=== PATIENT | male | born 1965 | race Caucasian/White ===

== ENCOUNTER 2025-02-03 11:14 | Inpatient (IN) | payer MEDICAID, SELFPAY ==
[2025-02-03] VITALS (7 sets, daily range): BP systolic 95–149; BP diastolic 74–88; PULSE 82–110; RESP 12–95; TEMP 36.2–37.3; O2SAT 97–100; BMI 21.6
--- NOTE | 2025-02-03 11:30 | XR_ITS ---
Exam: Chest 1 view, AP Date and time of exam: 02/03/2025, 1:22 PM Comparison: 01/19/2024 INDICATION: Chest pain Findings: Normal heart size. No mediastinal adenopathy. No acute fracture No pulmonary edema or pneumonia. Impression: No active disease.
--- NOTE | 2025-02-03 11:33 | PD.EDWEAK ---
ED Weakness RME/HPI General Chief complaint: Syncope / Near Syncope Stated complaint: NEAR SYNCOPE Time Seen by Provider: 02/03/25 11:30 Arrival date/time: 02/03/25 11:14 RME / HPI RME / HPI Narrative: 59 year old male with history of type 2 diabetes and hypertension was presented to the ER BIBA, Related Data Previous Rx's ?Medication ?Instructions ?Recorded amlodipine 10 mg tablet 10 mg PO QDAY #30 tabs 08/10/19 atorvastatin 80 mg tablet 80 mg PO QPM #30 tabs 08/10/19 carvedilol 6.25 mg tablet 6.25 mg PO BID #60 tabs 08/10/19 empagliflozin 10 mg tablet 10 mg PO QAM #30 tabs 08/10/19 (Jardiance) lisinopril 20 mg tablet 20 mg PO QDAY #30 tabs 08/10/19 Allergies Allergy/AdvReac Type Severity Reaction Status Date / Time No Known Allergies Allergy Unverified 09/16/19 14:11 Course Orders Category Date Time Status EKG (ED ONLY) *Do not use* NOW Care 02/03/25 11:30 Active EKG (ED Only) Stat Exams 02/03/25 11:30 Ordered XR chest 1V portable Stat Exams 02/03/25 11:30 Ordered Alcohol, Blood Medical Stat Lab 02/03/25 11:30 Ordered B-Type Natriuretic Peptide Stat Lab 02/03/25 11:30 Ordered CBC Stat Lab 02/03/25 11:30 Ordered Comprehensive Metabolic Panel Stat Lab 02/03/25 11:30 Ordered T4 (Thyroxine) Stat Lab 02/03/25 11:30 Ordered Thyroid Stimulating Hormone Stat Lab 02/03/25 11:30 Ordered Troponin I Stat Lab 02/03/25 11:30 Ordered Urinalysis Stat Lab 02/03/25 11:30 Ordered Urinalysis, C/S if Indicated Stat Lab 02/03/25 11:30 Ordered Discharge Plan Prescriptions/Referrals Prescriptions/Med Rec: No Action amlodipine 10 mg tablet 10 mg PO QDAY Qty: 30 0RF carvedilol 6.25 mg tablet 6.25 mg PO BID Qty: 60 0RF Rx Instructions: must administer with a meal/food lisinopril 20 mg tablet 20 mg PO QDAY Qty: 30 0RF atorvastatin 80 mg tablet 80 mg PO QPM Qty: 30 0RF Jardiance 10 mg tablet 10 mg PO QAM Qty: 30 0RF Patient/Caregiver Discharge Instructions Print Language: Monegasque
--- NOTE | 2025-02-03 11:38 | PD.EDSYNC ---
ED Syncope RME/HPI General Chief Complaint: Syncope / Near Syncope Stated Complaint: NEAR SYNCOPE Time Seen by Provider: 02/03/25 11:30 Arrival date/time: 02/03/25 11:14 RME / HPI RME / HPI narrative: 59 year old male with history of type 2 diabetes and hypertension was presented to the ER BIBA. Per EMS, chief complaint of near syncope. Patient stated he experienced dizziness, the whole place was spinning ,when kneeling or with sudden movements started yesterday during work. Patient denies feeling of weakness in extremities. Related Data Previous Rx's ?Medication ?Instructions ?Recorded amlodipine 10 mg tablet 10 mg PO QDAY #30 tabs 08/10/19 atorvastatin 80 mg tablet 80 mg PO QPM #30 tabs 08/10/19 carvedilol 6.25 mg tablet 6.25 mg PO BID #60 tabs 08/10/19 empagliflozin 10 mg tablet 10 mg PO QAM #30 tabs 08/10/19 (Jardiance) lisinopril 20 mg tablet 20 mg PO QDAY #30 tabs 08/10/19 Allergies Allergy/AdvReac Type Severity Reaction Status Date / Time No Known Allergies Allergy Unverified 09/16/19 14:11 Review of Systems Review of Systems Systems Reviewed: All systems reviewed, normal except as documented Narrative Review of Systems: Constitutional: DENIES; Fevers Eyes: DENIES; Loss of vision Head/Ear/Nose: DENIES; Loss of hearing Throat: DENIES; Dysphagia Cardiovascular: +near syncope DENIES; Chest pain, dyspnea Respiratory: DENIES; Shortness of breath Gastrointestinal: DENIES; Rectal bleeding or melena. Genitourinary: DENIES; Dysuria (painful or difficult urination) Musculoskeletal: DENIES; Arthralgia (pain in a joint),; Skin: DENIES; Rash Neurological: + dizziness DENIES; Loss of function or movement Psychiatric: DENIES; recent major life stressor, emotional problem, illicit drug use or abuse Endocrinology: DENIES; Weight change Hematologic/Lymphatic: DENIES; Abnormal bruising Allergic/Immunologic: DENIES; Urticaria (hives) Past Medical History Past Medical History NEUROLOGIC: Positive Neurological Disorders, Cerebrovascular Accident, Transient Ischemic Attacks (TIA) and Meningitis CARDIAC: Positive Hypertension Surgical History SURGICAL: Positive Tonsillectomy Social History SMOKING STATUS: Never smoker SUBSTANCE USE: marijuana and crack/cocaine ED Exam Narrative Physical exam: Physical Exam: General: The vital signs were reviewed. The patient is non-toxic, in no apparent distress and appears healthy with a patent airway, no respiratory distress and has no apparent circulatory problems. Head & Scalp: Normocephalic, atraumatic. Face: Appears normal and is without lesions, deformity. Ears: Left external pinna appears normal. Right external pinna appears normal. Eyes: The sclera is anicteric. No obvious photophobia. The Left and Right Orbit/Lid/Conjunctiva appears normal without swelling, discoloration or injection. Nose: The nose is without deformity, discharge or tenderness; Throat: Appears normal. The mucous membranes are pink and moist without exudates, redness or mass seen. The tongue appears normal. Neck: The neck is supple and no apparent mass or adenopathy. Chest: The chest wall is normal in size and symmetry and has no chest wall tenderness or crepitus. The patient displays normal ventilator effort without retractions, accessory muscle use and has adequate air movement bilaterally with no wheezes and no rales. Cardiovascular: Regular rate and rhythm; No murmurs, rubs, or gallops; Gastrointestinal: The abdomen appears normal. No obvious hernias or mass. The abdomen is soft and benign, non-distended, with no pain, no guarding and no rebound tenderness. Bowel sounds are present and normal sounding. No CVA tenderness. Genitourinary: Back/Spine: Extremities/Musculoskeletal/lymphatic: The bilateral upper and lower extremities are warm. There is no evidence of arterial insufficiency. There is no evidence of venous insufficiency/edema. The patient spontaneously moves bilateral upper and lower extremities with no pain and no limitation of movement. There is no apparent, injury or trauma. Skin: The skin is warm, dry and intact. No rashes. No petechia. No purpura. No abnormal bruising. The color is appropriate with no cyanosis. Mental status/Psychiatric: Mental status is appropriate for age. The patient has no apparent delusions, visual hallucinations, no apparent audible hallucinations. The patient has no apparent suicidal thoughts/ideation and no apparent homicidal thoughts/ideation. Neurological: The patient is awake, alert, interactive, cordial, cooperative and is oriented to name and situation. The patient follows commands and answers historical question with no impairment. There is no visual disturbance apparent. The pupils are equal and reactive bilaterally with normal eye movements and no diplopia The bilateral upper and lower extremities have normal strength, normal range of motion and normal functioning. The gait, station and balance were not tested due to acuity Course Quality Measures none Orders Category Date Time Status EKG (ED ONLY) *Do not use* NOW Care 02/03/25 11:30 Completed EKG (ED Only) Stat Exams 02/03/25 11:30 Ordered XR chest 1V portable Stat Exams 02/03/25 11:30 Completed Alcohol, Blood Medical Stat Lab 02/03/25 12:46 Completed B-Type Natriuretic Peptide Stat Lab 02/03/25 12:46 Completed CBC Stat Lab 02/03/25 12:46 Completed Comprehensive Metabolic Panel Stat Lab 02/03/25 12:46 Completed T4 (Thyroxine) Stat Lab 02/03/25 12:46 Completed Thyroid Stimulating Hormone Stat Lab 02/03/25 12:46 Completed Troponin I Stat Lab 02/03/25 12:46 Completed Urinalysis Stat Lab 02/03/25 11:30 Ordered Urinalysis, C/S if Indicated Stat Lab 02/03/25 11:30 Ordered Vital Signs Vital signs: Vital Signs Temperature 98.4 F 02/03/25 11:36 Pulse Rate 82 02/03/25 11:36 Blood Pressure 149/88 H 02/03/25 11:36 Pulse Oximetry (%) 100 02/03/25 11:36 Oxygen Delivery Method Room Air 02/03/25 11:36 Pulse ox is 100% on room air which is adequate. Syncope MDM Narrative MDM Narrative:: Susan Olivares am scribing for and in the presence of Dr. Curtis. Patient 59-year-old who comes in by ambulance complaining of intermittent vertigo symptoms feeling weak and possibly near syncope. He has no known cardiac problems. Medical workup revealed no neurological deficits clinically. He had no swallowing difficulties. Extraocular's are intact. Laboratory studies show a white count of 7.6 hemoglobin of 14.8 electrolytes within normal limits BUN 29 creatinine of 2.0 and review of old labs reveals some chronic renal insufficiency. Little worse today. Troponin came back at 1.681 previous troponins were all negative. BNP was negative at 35. Thyroid panel came back negative Note this patient was initially billed as 71 with atrial for by EMS but review of their strips revealed normal sinus rhythm with occasional PACs with a pause afterwards making it look like there was some irregularity. Alco level is negative. Chest x-ray came back negative. We were kind of surprised that the initial troponin came back positive and -200 he is got some cardiac ischemia or ACS going on. EKG came back with no STEMI. And review of the patient reveals that he is having no reported chest discomfort. Spoke with the hospitalist and they decided they will admit the patient start this out further. Patient data External records reviewed:: [facility] previous records and EMS form Clinical information provided by:: patient and EMS Social determinants that could affect healthcare access:: substance use Patient has the following chronic illnesses:: hypertension, type 2 diabetes How is presenting disease/condition affected by chronic disease/condition?: uneffected by Evaluation data The following diagnostics were reviewed and interpreted by me:: lab results, radiology exam(s) and EKG tracing(s) (EKG#1: EKG at 1335 hours. Interpreted by me: sinus rhythm, rate 83) Lab and/or radiology exams considered but not ordered:: none Interpretation Summary: Ordering Physician: Chauncey Curtis MD Date of Service: 02/03/25 Procedure(s): XR chest 1V portable Accession Number(s): [id number] cc: Fidel Duffy MD; Chauncey Curtis MD; Wayne Bishop~ Exam: Chest 1 view, AP Date and time of exam: 02/03/2025, 1:22 PM Comparison: 01/19/2024 INDICATION: Chest pain Findings: Normal heart size. No mediastinal adenopathy. No acute fracture No pulmonary edema or pneumonia. Impression: No active disease. Dictated By: Fidel Duffy MD Signed By: <Electronically signed by Fidel Duffy MD in OV> 02/03/25 1250 Medications / Prescriptions Medications or Prescriptions considered but not ordered:: none Medication administrations:: Medication Administration History Acetaminophen (Acetaminophen 325 Mg Tablet) 650 mg PO Q6H PRN PRN Reason: Fever >101.5 Stop: 03/05/25 15:00 Aspirin (Aspirin Ec 81 Mg Tabec) 81 mg PO QDAY SUSHMA Stop: 03/06/25 08:59 Atorvastatin Calcium (Atorvastatin Calcium 20 Mg Tablet) 40 mg PO HS SUSHMA Stop: 03/05/25 20:59 Ibuprofen (Ibuprofen Tab 600 Mg Tablet) 600 mg PO Q6H PRN PRN Reason: PAIN SCALE 1-3 (mild Stop: 03/05/25 15:00 Metoclopramide HCl (Metoclopramide Inj 5 Mg/Ml Vial 2 Ml) 10 mg IVP Q6H PRN; Protocol PRN Reason: NAUSEA OR VOMITING Stop: 03/05/25 15:00 Nitroglycerin (Nitroglycerin 0.4 Mg Subl Btl #25) 0.4 mg SL Q5MIN PRN PRN Reason: CHEST PAIN Discontinued Medications Aspirin (Aspirin 325 Mg Tablet) 325 mg PO X1 ONE Stop: 02/03/25 15:10 Heparin Sodium (Porcine) (Heparin Sod Inj 5000 Unit/Ml Vial) 4,000 unit IV X1 ONE; Protocol Stop: 02/03/25 15:08 Heparin Sodium/Dextrose (Heparin In D5w Ivpb) 25,000 unit in 250 mls @ 8.437 mls/hr IV .Q24H SUSHMA; Protocol Stop: 02/17/25 15:14 see above Consultations Consultation(s) initiated? (list below): Yes Consultation #1 (Physician, Specialty, Details): I spoke with hospitalist Dr. Matthews. Discussed patients PMHx, HPI, ED course, exam findings, labs, and radiology results. The hospitalist agree to accept the patient for admission. Diagnosis Syncope Differential Diagnosis: syncope due to orthostatic hypotension, vasovagal syncope and other (vertigo ) Most likely diagnosis given after review of the tests above:: Weakness Elevated troponin Vertigo Admission Indicated Admission indicated?: indicated Admission Request Was there a request for admission?: Yes Admission Attestation Admission request attestation: Discussed case with [] from Hospitalist service regarding admission. Discussed patients ED course, exam findings, labs, and radiology results. The Hospitalist [agrees,declines] to accept the patient for admission. Disposition Plan Disposition Plan: Admit Discharge Plan Plan Patient Disposition: Admit Acute Care w/in Hospital Disposition Comment: Hospitalist to admit thank Problem List Clinical Impression: Weakness, Elevated troponin, Vertigo
[2025-02-03 12:55] LABS: Basophils # (Auto) 0.1 Thou/mm3 (0.0-0.2); Basophils % (Auto) 1 % (0-2.5); Eosinophils % (Auto) 0 % (0-10); Hematocrit 43.9 % (41.0-53.0); Hemoglobin 14.8 g/dL (13.5-16.0); Immature Granulocytes % (Auto) 0 % (0-0); Immature Granulocytes Auto 0.03 Thou/mm3 (0.00-0.00); Lymphocytes % (Auto) 13 % (10-50); Mean Corpuscular HGB Conc 33.7 g/dl (31.0-37.0); Mean Corpuscular Volume 80 fL (80-100); Monocytes # (Auto) 0.5 Thou/mm3 (0.0-0.8); Monocytes % (Auto) 6 % (0-12); Neutrophils % (Auto) 79 % (37-80); Nucleated Red Blood Cell % 0 /100 WBC (0); Platelet Count 250 Thou/mm3 (140-440); RDW Standard Deviation 39.2 fL (35.1-43.9); Red Blood Count 5.49 Miln/mm3 (4.50-5.90); White Blood Count 7.6 Thou/mm3 (3.8-10.6)
[2025-02-03 13:12] LABS: B-Type Natriuretic Peptide 35 pg/mL (0-100)
[2025-02-03 13:16] LABS: T4 (Thyroxine) 8.5 mcg/dL (4.5-10.9)
[2025-02-03 13:19] LABS: Alanine Aminotransferase 21 U/L (10-49); Albumin, Serum 4.1 gm/dL (3.5-5.0); Albumin/Globulin Ratio 1.3 (1.2-2.2); Alcohol, Blood Medical < 3.0 mg/dL (0-10.0); Alkaline Phosphatase 72 U/L (46-116); Anion Gap 6 (7-16); Aspartate Amino Transferase 20 U/L (0-34); BUN/Creatinine Ratio 15 Ratio (12-20); Bilirubin,Total 0.8 mg/dL (0.3-1.2); Blood Urea Nitrogen 29 mg/dL (9-23); Calcium 9.3 mg/dL (8.3-10.6); Calcium (Corrected) 9.3 mg/dL (8.5-10.1); Carbon Dioxide 27.7 mMol/L (20.0-31.0); Chloride 105 mMol/L (98-107); Globulin 3.1 gm/dL (2.3-3.5); Glucose 166 mg/dL (74-106); Osmolality,Calculated 287 (275-295); Potassium 4.2 mMol/L (3.4-5.1); Sodium 139 mMol/L (136-145); Thyroid Stimulating Hormone 1.06 uIU/mL (0.55-4.78); Total Protein 7.2 gm/dL (5.7-8.2); eGFR 38 See Note
[2025-02-03 13:21] LABS: Troponin I 1.681 ng/mL (0.0-0.045)
--- NOTE | 2025-02-03 15:07 | PD.ADDHP ---
Addendum History & Physical Addendum Date of report being addended: 02/03/25 Narrative: Attending's attestation: I reviewed labs, imaging, EKG, home medications and prior available records. Face to face evaluation was performed by me. I have personally examined the patient and discussed assessment and plan with the IM team. I reviewed the resident note and agree with the plan with exceptions as below. Non-STEMI Dizziness Chest pain at rest Type 2 diabetes mellitus Essential hypertension BPH History of intracranial bleed Started aspirin and atorvastatin Held heparin drip due to history of intracranial bleed Trend troponin Consulted cardiology Ordered echocardiogram Resume antihypertensive treatment Start sliding scale insulin and monitor fingersticks
--- NOTE | 2025-02-03 15:20 | PD.RESHP ---
Documentation for date of: 02/03/25 HPI History of Present Illness History of present illness: 59-year-old male patient with significant medical history for multiple CVA (including bleeding), hypertension, diabetes and hyperlipidemia came to ED for dizziness and intermittent chest pain. Patient states that he has episodes of dizziness whenever he is exerting himself. Patient denied chest pain/pressure, NVD, palpitations, fever or other associated symptoms. While patient does have episodes of intermittent episodes of nonradiating chest pain, he denied chest pain during this visit. Patient had bleeding stroke in 2018 that required transfer to [facility], he also had an episode of TIA in 2019. Patient follows up with [facility]. On admission vitals significant for BP 149/88, CBC was unremarkable, indicated BUN of 29, creatinine 2, EGFR 38 glucose 166, troponin 1.68. Chest x-ray was unremarkable and EKG was negative for STEMI. Given patient elevated troponin, history and comorbidities, patient will be admitted for ACS work-up. Electric Distribution Engineer Dr. Archer consulted. Medical Hx: CVA, TIA, hypertension, diabetes, hyperlipidemia Surgical Hx: Appendectomy, hernia repair, tonsillectomy Medications (needs reconciliation): Amlodipine, atorvastatin, carvedilol, Jardiance, lisinopril Social Hx: Works in automotive industry, lives with , denies smoking cigarettes or using other illicit drugs, socially drinks alcohol Allergies: NKDA CODE STATUS: Full code Review of Systems Review of Systems Systems Reviewed: All systems reviewed, normal except as documented Exam Vital Signs Temp Pulse Resp BP Pulse Ox O2 Del Method 99.1 F 95 15 108/76 98 Room Air 02/03/25 13:40 02/03/25 13:40 02/03/25 13:40 02/03/25 13:40 02/03/25 13:40 02/03/25 13:40 Narrative Exam Constitutional: well-developed, well-nourished, in no acute distress, lying in bed HEENT: NCAT, EOMI, reactive round pupils b/l, patent nares b/l, moist mucous membranes Lung: CTAB, no wheezing, no rhonchi Heart: Regular S1S2, no murmurs, gallops, or rubs Abdomen: Soft, non-distended, non-tender, bowel sounds present throughout Extremities: No cyanosis, clubbing, or edema, LE pulses present b/l Neurologic: No focal sensory or motor deficits noted, AOx3, appropriate affect Skin: Warm, dry, no lesions or rashes noted Results: Labs 02/04/25 06:42 02/04/25 06:42 Labs: Short CBC 02/03/25 Range/Units 12:46 WBC 7.6 (3.8-10.6) Thou/mm3 Hgb 14.8 (13.5-16.0) g/dL Hct 43.9 (41.0-53.0) % Plt Count 250 (140-440) Thou/mm3 BMP 02/03/25 12:46 Sodium 139 Potassium 4.2 Chloride 105 Carbon Dioxide 27.7 BUN 29 H Creatinine 2.0 H Glucose 166 H Calcium 9.3 Cardiac Enzymes 02/03/25 Range/Units 12:46 Troponin I 1.681 H* (0.0-0.045) ng/mL Liver Function 02/03/25 Range/Units 12:46 Total Bilirubin 0.8 (0.3-1.2) mg/dL AST 20 (0-34) U/L ALT 21 (10-49) U/L Alkaline Phosphatase 72 (46-116) U/L Albumin 4.1 (3.5-5.0) gm/dL Quality Measures Quality Measures none Medications Home Medications and Allergies Home Medications ?Medication ?Instructions ?Recorded ?Confirmed ?Type linagliptin 5 mg tablet (Tradjenta) 5 mg PO QDAY 02/04/25 02/04/25 History lisinopril 20 2 tab PO QDAY 02/04/25 02/04/25 History mg-hydrochlorothiazide 25 mg tablet (Zestoretic) metformin 500 mg tablet,extended 500 mg PO QDAY 02/04/25 02/04/25 History release 24 hr tamsulosin 0.4 mg capsule 0.4 mg PO QDAY 02/04/25 02/04/25 History Allergies Allergy/AdvReac Type Severity Reaction Status Date / Time No Known Allergies Allergy Unverified 09/16/19 14:11 Visit Medications Acetaminophen (Acetaminophen 325 Mg Tablet) 650 mg PO Q6H PRN PRN Reason: Fever >101.5 Stop: 03/05/25 15:00 Aspirin (Aspirin Ec 81 Mg Tabec) 81 mg PO QDAY SUSHMA Stop: 03/06/25 08:59 Atorvastatin Calcium (Atorvastatin Calcium 20 Mg Tablet) 40 mg PO HS SUSHMA Stop: 03/05/25 20:59 Heparin Sodium (Porcine) (Heparin Sod Inj 5000 Unit/Ml Vial) 4,000 unit IV X1 ONE; Protocol Stop: 02/03/25 15:08 Heparin Sodium/Dextrose (Heparin In D5w Ivpb) 25,000 unit in 250 mls @ 8.437 mls/hr IV .Q24H SUSHMA; Protocol Stop: 02/17/25 15:14 Ibuprofen (Ibuprofen Tab 600 Mg Tablet) 600 mg PO Q6H PRN PRN Reason: PAIN SCALE 1-3 (mild Stop: 03/05/25 15:00 Metoclopramide HCl (Metoclopramide Inj 5 Mg/Ml Vial 2 Ml) 10 mg IVP Q6H PRN; Protocol PRN Reason: NAUSEA OR VOMITING Stop: 03/05/25 15:00 Discontinued Medications Aspirin (Aspirin 325 Mg Tablet) 325 mg PO X1 ONE Stop: 02/03/25 15:10 Assessment & Plan Plan 59-year-old male patient with significant medical history for CVA, TIA, hypertension, diabetes hyperlipidemia admitted for ACS workup #ACS work-up #NSTEMI #Elevated troponin #Near syncope Patient with history of hypertension, diabetes for lipidemia On admission patient complaining of dizziness and history of intermittent nonradiating chest pain Lab significant for elevated troponin with EKG negative for STEMI Plan: ? Admit to telemetry ? Electric Distribution Engineer consulted, recommendations are greatly appreciated ? Start aspirin and atorvastatin ? Withhold heparin ggt in setting of bleeding stroke hx ? Trend troponin ? Sublingual nitroglycerin for chest pain ? Echocardiogram ordered #Hypertension Plan: ? Restart home meds after conciliation #Diabetes mellitus type 2 Patient on p.o. metformin and Jardiance Plan: ? Follow-up A1c ? SSI plus [facility] Maintenance Dispo: Patient admitted for ACS workup, cardiology consulted Diet: Cardiac diet DVT/PPx: Heparin GI ppx: None Lines: PIV Code Status: Full code This patient care was discussed with my attending Dr. Byron Clark MD PGY-2 Disclaimer: Minor errors in automotive fleet supervisor may be present since this note was dictated by speech recognition software. Attending Provider Attestation/Addendum I reviewed labs, imaging, EKG, home medications and prior available records. Face to face evaluation was performed by me. I have personally examined the patient and discussed assessment and plan with the IM team. I reviewed the resident note and agree with the plan with exceptions as below. See my addendum for the same date of service
[2025-02-03 15:30] LABS: Partial Thromboplastin Time 25.6 Seconds (22.0-36.0)
[2025-02-03] MEDS: Aspirin 325 MG TABLET PO (18:15)
[2025-02-03 19:22] LABS: Troponin I 1.212 ng/mL (0.0-0.045)
--- NOTE | 2025-02-03 19:31 | PC.NURSE ---
Report given to Priscila PASTRANA in tele.
--- NOTE | 2025-02-03 20:00 | PC.NURSE ---
Unable to do med rec patient does not remember or have his home meds with him. Per patient, his will bring his home meds when she comes in the AM
[2025-02-03] MEDS: ATORVASTATIN CALCIUM 20 MG TABLET 40 MG PO (20:20)
[2025-02-03] MEDS: HEPARIN SOD INJ 5000 UNIT/ML VIAL SC (21:09)
--- NOTE | 2025-02-03 23:55 | PC.NURSE ---
MD Kelly notified that patient's orthostatic vitals are positive. See below Laying: BP 128/84 HR 96 Sitting: BP 102/80 HR 97 Standing:BP 95/74 HR 110
[2025-02-04] VITALS (8 sets, daily range): BP systolic 108–145; BP diastolic 75–99; PULSE 66–95; RESP 13–20; TEMP 35.9–36.9; O2SAT 96–98; BMI 23.8
[2025-02-04 01:09] LABS: Troponin I 1.163 ng/mL (0.0-0.045)
[2025-02-04] MEDS: HEPARIN SOD INJ 5000 UNIT/ML VIAL SC ×3 (05:25→21:07)
[2025-02-04 07:01] LABS: Basophils # (Auto) 0.1 Thou/mm3 (0.0-0.2); Basophils % (Auto) 1 % (0-2.5); Eosinophils # (Auto) 0.1 Thou/mm3 (0.0-0.5); Eosinophils % (Auto) 1 % (0-10); Hematocrit 44.3 % (41.0-53.0); Hemoglobin 14.6 g/dL (13.5-16.0); Immature Granulocytes % (Auto) 0 % (0-0); Immature Granulocytes Auto 0.02 Thou/mm3 (0.00-0.00); Lymphocytes # (Auto) 1.4 Thou/mm3 (1.0-4.8); Lymphocytes % (Auto) 22 % (10-50); Mean Corpuscular Hemoglobin 26.9 pg (25.0-35.0); Mean Corpuscular Volume 82 fL (80-100); Monocytes # (Auto) 0.5 Thou/mm3 (0.0-0.8); Monocytes % (Auto) 7 % (0-12); Neutrophils # (Auto) 4.6 Thou/mm3 (1.8-7.7); Neutrophils % (Auto) 69 % (37-80); Nucleated Red Blood Cell % 0 /100 WBC (0); Platelet Count 246 Thou/mm3 (140-440); RDW Standard Deviation 39.9 fL (35.1-43.9); Red Blood Count 5.42 Miln/mm3 (4.50-5.90); White Blood Count 6.6 Thou/mm3 (3.8-10.6)
[2025-02-04 07:13] LABS: Partial Thromboplastin Time 26.7 Seconds (22.0-36.0)
[2025-02-04 07:18] LABS: Glucose Estimated Average 160 mg/dL (80-131); Hemoglobin A1C 7.2 % Hgb (4.8-6.0)
[2025-02-04 07:26] LABS: Anion Gap 6 (7-16); BUN/Creatinine Ratio 15 Ratio (12-20); Blood Urea Nitrogen 27 mg/dL (9-23); Calcium 9.4 mg/dL (8.3-10.6); Carbon Dioxide 28.3 mMol/L (20.0-31.0); Chloride 104 mMol/L (98-107); Creatinine (Component) 1.8 mg/dL (0.6-1.3); Estimated Creatinine Clearance 47.6 mL/min (>60); Glucose 167 mg/dL (74-106); Osmolality,Calculated 284 (275-295); Phosphorous 2.7 mg/dL (2.4-5.1); Potassium 4.1 mMol/L (3.4-5.1); Sodium 138 mMol/L (136-145); Thyroid Stimulating Hormone 1.04 uIU/mL (0.55-4.78); Troponin I 0.889 ng/mL (0.0-0.045); eGFR 43 See Note
[2025-02-04] MEDS: INSULIN LISPRO (AdmeLOG) 1 UNIT/0.01 ML UNIT SC (07:29)
[2025-02-04 07:48] LABS: Cardiac Risk Estimate 4.3 RATIO (4.0-6.7); Cholesterol 152 mg/dL (132-200); HDL Cholesterol 35 mg/dL (40-60); LDL Cholesterol,Calculated 90 mg/dL (0-130); Triglycerides 137 mg/dL (30-150)
[2025-02-04] MEDS: ASPIRIN EC 81 MG TABEC PO (08:59)
--- NOTE | 2025-02-04 10:18 | PC.SS ---
This is 59-, male who presented to the ED for chest pain. Patient appeared alert and oriented to self, place and situation. Patient was pleasant, his mood and behavior were ordinary. Patient verified his address. He resides in a home. Patient is independent, no DME use. Patient's PCP is DINESH. Patient assigned his , Jacqueline, as his medical decision maker. When medically clear, patient will return home, no transportation.
--- NOTE | 2025-02-04 11:58 | ESPR_ITS ---
Documentation for date of: 02/04/25 Subjective Subjective Interval history: Orthostatic vital indicated orthostatic hypotension. Patient educated on dehydration and inreased p.o. intake. Patient pending echo and cardiology reccs. Patient denied chest pain/pressure or other associated symptoms, troponin downtrended. Anticipating discharge within 24-48 hours. Exam Vital Signs Temp Pulse Resp BP Pulse Ox O2 Del Method 97.0 F 74 13 112/87 H 96 Room Air 02/04/25 08:00 02/04/25 08:00 02/04/25 08:00 02/04/25 08:00 02/04/25 08:00 02/04/25 08:00 Narrative Exam Constitutional: well-developed, well-nourished, in no acute distress, lying in bed HEENT: NCAT, EOMI, reactive round pupils b/l, patent nares b/l, moist mucous membranes Lung: CTAB, no wheezing, no rhonchi Heart: Regular S1S2, no murmurs, gallops, or rubs Abdomen: Soft, non-distended, non-tender, bowel sounds present throughout Extremities: No cyanosis, clubbing, or edema, LE pulses present b/l Neurologic: No focal sensory or motor deficits noted, AOx3, appropriate affect Skin: Warm, dry, no lesions or rashes noted Objective Labs 02/05/25 05:23 02/05/25 05:23 Labs: Laboratory Results - last 24 hr 02/03/25 02/03/25 02/04/25 12:46 18:06 00:35 WBC 7.6 RBC 5.49 Hgb 14.8 Hct 43.9 MCV 80 MCH 27.0 MCHC 33.7 RDW Std Deviation 39.2 Plt Count 250 Neut % (Auto) 79 Lymph % (Auto) 13 [place] % (Auto) 6 Eos % (Auto) 0 Baso % (Auto) 1 Neut # (Auto) 6.0 Lymph # (Auto) 1.0 [place] # (Auto) 0.5 Eos # (Auto) 0.0 Baso # (Auto) 0.1 Immature Gran # (Auto) 0.03 H Absolute Nucleated RBC 0.00 Immature Gran % 0 Nucleated RBC % 0 APTT 25.6 Sodium 139 Potassium 4.2 Chloride 105 Carbon Dioxide 27.7 Anion Gap 6 L BUN 29 H Creatinine 2.0 H Estim Creat Clear Calc 40.0 L eGFR 38 L BUN/Creatinine Ratio [address] Glu mg/dL Hemoglobin A1c Calculated Osmolality 287 Calcium 9.3 Corrected Calcium 9.3 Phosphorus Magnesium Total Bilirubin 0.8 AST 20 ALT 21 Alkaline Phosphatase 72 Troponin I 1.681 H* 1.212 H* D 1.163 H* B-Natriuretic Peptide 35 Total Protein 7.2 Albumin 4.1 Globulin 3.1 Albumin/Globulin Ratio 1.3 Triglycerides Cholesterol LDL Cholesterol, Calc HDL Cholesterol Cholesterol/HDL Ratio TSH 1.06 Thyroxine (T4) 8.5 Ethyl Alcohol < 3.0 02/04/25 06:42 WBC 6.6 RBC 5.42 Hgb 14.6 Hct 44.3 MCV 82 MCH 26.9 MCHC 33.0 RDW Std Deviation 39.9 Plt Count 246 Neut % (Auto) 69 Lymph % (Auto) 22 [place] % (Auto) 7 Eos % (Auto) 1 Baso % (Auto) 1 Neut # (Auto) 4.6 Lymph # (Auto) 1.4 [place] # (Auto) 0.5 Eos # (Auto) 0.1 Baso # (Auto) 0.1 Immature Gran # (Auto) 0.02 H Absolute Nucleated RBC 0.00 Immature Gran % 0 Nucleated RBC % 0 APTT 26.7 Sodium 138 Potassium 4.1 Chloride 104 Carbon Dioxide 28.3 Anion Gap 6 L BUN 27 H Creatinine 1.8 H Estim Creat Clear Calc 47.6 L eGFR 43 L BUN/Creatinine Ratio [address]ucose [address] Glu mg/dL 160 H Hemoglobin A1c 7.2 H Calculated Osmolality 284 Calcium 9.4 Corrected Calcium Phosphorus 2.7 Magnesium 2.0 Total Bilirubin AST ALT Alkaline Phosphatase Troponin I 0.889 H* D B-Natriuretic Peptide Total Protein Albumin Globulin Albumin/Globulin Ratio Triglycerides 137 Cholesterol 152 LDL Cholesterol, Calc 90 HDL Cholesterol 35 L Cholesterol/HDL Ratio 4.3 TSH 1.04 Thyroxine (T4) Ethyl Alcohol Quality Measures Quality Measures none Assessment & Plan Assessment Current Active Medications: Generic Name Dose Route Start Last Admin Trade Name Freq PRN Reason Stop Dose Admin Acetaminophen 650 mg 02/03/25 15:01 Acetaminophen 325 Mg Tablet PO 03/05/25 15:00 Q6H PRN Fever >101.5 Aspirin 81 mg 02/04/25 09:00 02/04/25 08:59 Aspirin Ec 81 Mg Tabec PO 03/06/25 08:59 81 mg QDAY SUSHMA Administration Atorvastatin Calcium 40 mg 02/03/25 21:00 02/03/25 20:20 Atorvastatin Calcium 20 Mg Tablet PO 03/05/25 20:59 40 mg HS SUSHMA Administration Dextrose 25 ml 02/03/25 18:25 Dextrose 50%-Water Inj 50 Ml Syringe IV 03/05/25 18:24 Q15MIN PRN BG 50-70 responsive npo pt Dextrose 50 ml 02/03/25 18:25 Dextrose 50%-Water Inj 50 Ml Syringe IV 03/05/25 18:24 Q15MIN PRN BG <50 OR BG <70 & pt unresponsive Glucagon 1 mg 02/03/25 18:25 Glucagon Inj 1 Mg Vial IM Q15MIN PRN BG <70, and no IV access Heparin Sodium (Porcine) 5,000 unit 02/03/25 22:00 02/04/25 05:25 Heparin Sod Inj 5000 Unit/Ml Vial SC 02/17/25 21:59 5,000 unit Q8HR SUSHMA Administration Ibuprofen 600 mg 02/03/25 15:01 Ibuprofen Tab 600 Mg Tablet PO 03/05/25 15:00 Q6H PRN PAIN SCALE 1-3 (mild Insulin Human Lispro 0 unit 02/04/25 07:30 02/04/25 11:19 Insulin Lispro (Admelog) 1 Unit/0.01 Ml Unit SC 03/06/25 07:29 Not Given AC [facility] Protocol Metoclopramide HCl 10 mg 02/03/25 15:01 Metoclopramide Inj 5 Mg/Ml Vial 2 Ml IVP 03/05/25 15:00 Q6H PRN NAUSEA OR VOMITING Protocol Nitroglycerin 0.4 mg 02/03/25 15:22 Nitroglycerin 0.4 Mg Subl Btl #25 SL Q5MIN PRN CHEST PAIN Plan 59-year-old male patient with significant medical history for CVA, TIA, hypertension, diabetes hyperlipidemia admitted for ACS workup #ACS work-up #NSTEMI #Near syncope #Elevated troponin Patient with history of hypertension, diabetes for lipidemia On admission patient complaining of dizziness and history of intermittent nonradiating chest pain Lab significant for elevated troponin with EKG negative for STEMI Plan: ? Admit to telemetry ? Shipyard Painter Apprentice consulted, recommendations are greatly appreciated ? Continue aspirin and atorvastatin ? Sublingual nitroglycerin for chest pain ? Echocardiogram pending #Hypertension Plan: - Current BP WNL ? Withhold BP meds in setting of orthostatic hypotension #Diabetes mellitus type 2 Patient on p.o. metformin and Jardiance Plan: ? Follow-up A1c ? [facility] Maintenance Dispo: Patient admitted for ACS workup, cardiology consulted Diet: Cardiac diet DVT/PPx: Heparin GI ppx: None Lines: PIV Code Status: Full code This patient care was discussed with my attending Dr. Lele Clark MD PGY-2 Disclaimer: Minor errors in biometrics technician may be present since this note was dictated by speech recognition software. Attending Provider Attestation/Addendum Patient seen and examined at bedside with resident. Agree with assessment and plan as dictated above. Patient appears mildly improved today. He reports some improvement in his dizziness. Still waiting on echo and cardiology recommendations. Likely some element of orthostatic hypotension with positive orthostatic vitals. Reassess patient's home regimen and advised to increase p.o. intake. Anticipate discharge in next 1 to 2 days. Avi Royal MD
[2025-02-04] MEDS: ATORVASTATIN CALCIUM 20 MG TABLET 40 MG PO (20:33)
[2025-02-05] VITALS: PULSE 66
[2025-02-05 04:00] VITALS: BP 139/93; PULSE 68; PULSE 70; RESP 17; TEMP 36.4; O2SAT 98
[2025-02-05] MEDS: HEPARIN SOD INJ 5000 UNIT/ML VIAL SC ×2 (05:19→14:39)
[2025-02-05 06:00] LABS: Basophils % (Auto) 1 % (0-2.5); Eosinophils # (Auto) 0.1 Thou/mm3 (0.0-0.5); Eosinophils % (Auto) 1 % (0-10); Hematocrit 45.1 % (41.0-53.0); Hemoglobin 15.1 g/dL (13.5-16.0); Immature Granulocytes % (Auto) 0 % (0-0); Immature Granulocytes Auto 0.01 Thou/mm3 (0.00-0.00); Lymphocytes # (Auto) 1.2 Thou/mm3 (1.0-4.8); Lymphocytes % (Auto) 22 % (10-50); Mean Corpuscular HGB Conc 33.5 g/dl (31.0-37.0); Mean Corpuscular Hemoglobin 26.9 pg (25.0-35.0); Mean Corpuscular Volume 80 fL (80-100); Monocytes # (Auto) 0.4 Thou/mm3 (0.0-0.8); Monocytes % (Auto) 7 % (0-12); Neutrophils # (Auto) 3.6 Thou/mm3 (1.8-7.7); Neutrophils % (Auto) 69 % (37-80); Nucleated Red Blood Cell % 0 /100 WBC (0); Platelet Count 235 Thou/mm3 (140-440); Red Blood Count 5.62 Miln/mm3 (4.50-5.90); White Blood Count 5.3 Thou/mm3 (3.8-10.6)
[2025-02-05 06:09] LABS: Partial Thromboplastin Time 27.9 Seconds (22.0-36.0)
[2025-02-05 06:24] LABS: Anion Gap 8 (7-16); BUN/Creatinine Ratio 18 Ratio (12-20); Blood Urea Nitrogen 28 mg/dL (9-23); Calcium 8.8 mg/dL (8.3-10.6); Carbon Dioxide 26.2 mMol/L (20.0-31.0); Chloride 101 mMol/L (98-107); Creatinine (Component) 1.6 mg/dL (0.6-1.3); Estimated Creatinine Clearance 53.6 mL/min (>60); Glucose 139 mg/dL (74-106); Magnesium 2.1 mg/dL (1.6-2.6); Osmolality,Calculated 277 (275-295); Phosphorous 2.6 mg/dL (2.4-5.1); Potassium 3.8 mMol/L (3.4-5.1); Sodium 135 mMol/L (136-145); eGFR 50 See Note
[2025-02-05 08:00] VITALS: BP 137/99; PULSE 73; RESP 21; TEMP 36.2; O2SAT 97
[2025-02-05] MEDS: ASPIRIN EC 81 MG TABEC PO (08:23)
--- NOTE | 2025-02-05 11:36 | PD.IMCONS ---
HPI Data of Consult Requesting Physician: Don Matthews MD Primary Care Provider: WALT Buck Consult Narrative History of present illness: This is a 59-year-old male patient with significant medical history for multiple CVA (including bleeding), hypertension, diabetes and hyperlipidemia was seen in the ER with dizziness no chest pain reported EKG no acute changes troponin troponin peaked at 1.2 cc:: cc: Don Matthews MD Meds Home Medications and Allergies Home Medications ?Medication ?Instructions ?Recorded ?Confirmed ?Type linagliptin 5 mg tablet (Tradjenta) 5 mg PO QDAY 02/04/25 02/04/25 History lisinopril 20 2 tab PO QDAY 02/04/25 02/04/25 History mg-hydrochlorothiazide 25 mg tablet (Zestoretic) metformin 500 mg tablet,extended 500 mg PO QDAY 02/04/25 02/04/25 History release 24 hr tamsulosin 0.4 mg capsule 0.4 mg PO QDAY 02/04/25 02/04/25 History Allergies Allergy/AdvReac Type Severity Reaction Status Date / Time No Known Allergies Allergy Unverified 09/16/19 14:11 Exam Vital Signs Temp Pulse Resp BP Pulse Ox O2 Del Method 97.1 F 73 21 H 137/99 H 97 Room Air 02/05/25 08:00 02/05/25 08:00 02/05/25 08:00 02/05/25 08:00 02/05/25 08:00 02/05/25 08:00 Routine HEENT Exam Head: Present normocephalic and atraumatic Eye: Present EOMI and PERRL ENT: Present mucous membranes moist Routine Neck Exam Neck: Present supple and trachea midline Routine Respiratory Exam Respiratory: Present chest non-tender, lungs clear, normal breath sounds and no resp distress Routine Cardiovascular Exam Cardiovascular: Present RRR Routine Abdominal Exam Abdominal: Present soft and normoactive bowel sounds Routine Extremities Exam Extremities: Present full ROM Routine Skin Exam Skin: Present intact, dry and warm Routine Neurological Exam Neurological: Present alert, oriented X3 and CN II-XII intact Routine Psychiatric Exam Psychiatric: Present normal affect and normal thought process Results Labs 02/05/25 05:23 02/05/25 05:23 Labs: Short CBC 02/05/25 Range/Units 05:23 WBC 5.3 (3.8-10.6) Thou/mm3 Hgb 15.1 (13.5-16.0) g/dL Hct 45.1 (41.0-53.0) % Plt Count 235 (140-440) Thou/mm3 [facility] 02/05/25 05:23 Sodium 135 L Potassium 3.8 Chloride 101 Carbon Dioxide 26.2 BUN 28 H Creatinine 1.6 H Glucose 139 H Calcium 8.8 Assessment and Plan Assessment and plan (1) Vertigo: Status: Acute (2) Elevated troponin: Status: Acute (3) Weakness: Status: Acute (4) Uncontrolled stage 2 hypertension: Status: Acute (5) Brain TIA: Status: Acute Additional Assessment & Plan Additional Plan: resume home meds troponin mildly elevated echo in 2019 normal EF EKG negative ; no chest pain reported will f/u
[2025-02-05 11:58] VITALS: BP 123/99; PULSE 89; RESP 15; TEMP 36.1; O2SAT 97
[2025-02-05 12:00] VITALS: PULSE 73
--- NOTE | 2025-02-05 14:49 | PD.RESDS ---
Planned Discharge Date 02/05/25 DS: Providers Provider Date of admission: 02/03/25 15:01 Primary care physician: WALT Buck Admitting Provider: Don Matthews MD Attending Provider on Admission: Don Matthews MD Consults: 02/03/25 15:21 Consult to Cardiology Routine Comment: Consulting Provider: Ruben Archer Attending Provider on DC: Avi Royal MD Discharging Provider: Avi Royal MD DS: Diagnosis Problem List Completed Was Problem List Reviewed/Reconciled?: Yes Hospital Course Hospital Course Hospital course: Reason for hospitalization:workup ACS Leopoldo Cavanaugh is 59 yr male with PMH of multiple CVA (including bleeding), hypertension, diabetes and hyperlipidemia who presented to [facility] ED on 02/03/25 due to dizziness and intermittent chest pain. Patient states that he has episodes of dizziness whenever he is exerting himself. Given patient elevated troponin, history and comorbidities, patientwas admitted for ACS work-up. Powdered Sugar Pulverizer Operator Dr. Archer consulted. On admission vitals significant for BP 149/88, CBC was unremarkable, indicated BUN of 29, creatinine 2, EGFR 38 glucose 166, troponin 1.68 (peaked at 1.68). Chest x-ray was unremarkable and EKG was negative for STEMI. Patient was started on aspirin and atrovastatin. Heparin drip was held due to high risk of bleeding. Blood sugars remained well controlled. Orthrostatic vitals were positive for orthostatic hypotension and all anti-hypertensives were held. Dr. Archer will evaluate patient in his clinic and get ehco completed. Patient is now in stable condition and ready for discharge. Recommendations were given as below. Discharge Recommendations: Follow up with primary doctor and with bracelet and brooch maker Dr. Archer within 1-2 weeks. Echo to be done outpatient with Dr. Archer. Hold all blood pressure medications due to your low blood pressure. They are to be resumed after being seen by your bracelet and brooch maker. Continue aspirin 81 mg and atovastatin 40 mg daily. Return to ED if symptoms worsen. Hospital Diagnoses: #ACS work-up #NSTEMI #Near syncope #Elevated troponin #Hypertension #Diabetes mellitus type 2 The patient's management plan was discussed with my attending physician Dr. Royal. Briseyda Schulz MD, PGY-1 Time Spent with Patient Time attestation: Total time spent providing and/or coordinating discharge services: Time spent: Greater than 30 minutes Specific discharge activities: Slow to rise maneuvers to prevent drop in blood pressure . Increase oral intake. Exam Vital Signs Temp Pulse Resp BP Pulse Ox O2 Del Method 96.9 F 89 15 123/99 H 97 Room Air 02/05/25 11:58 02/05/25 11:58 02/05/25 11:58 02/05/25 11:58 02/05/25 11:58 02/05/25 11:58 Narrative Exam Constitutional: well-developed, well-nourished, in no acute distress, lying in bed HEENT: NCAT, EOMI, reactive round pupils b/l, patent nares b/l, moist mucous membranes Lung: CTAB, no wheezing, no rhonchi Heart: Regular S1S2, no murmurs, gallops, or rubs Abdomen: Soft, non-distended, non-tender, bowel sounds present throughout Extremities: No cyanosis, clubbing, or edema, LE pulses present b/l Neurologic: No focal sensory or motor deficits noted, AOx3, appropriate affect Skin: Warm, dry, no lesions or rashes noted Discharge Plan Plan Patient Disposition: HOME (Self Care) Disposition Comment: Hospitalist to admit thank Patient condition on transfer: Stable Prescriptions/Referrals Prescriptions/Med Rec: New aspirin 81 mg capsule 81 mg PO QDAY Qty: 30 0RF atorvastatin 20 mg Tablet 40 mg PO HS 30 Days Qty: 30 0RF Continued atorvastatin 80 mg tablet 80 mg PO QPM Qty: 30 0RF metformin 500 mg tablet extended release 24 hr 500 mg PO QDAY Tradjenta 5 mg tablet 5 mg PO QDAY tamsulosin 0.4 mg capsule 0.4 mg PO QDAY Rx Instructions: Take 1 capsule by mouth once daily for 30 days Held amlodipine 10 mg tablet 10 mg PO QDAY Qty: 30 0RF Hold Instructions: Resume on 02/23/25. Hold until you see your PCP. carvedilol 6.25 mg tablet 6.25 mg PO BID Qty: 60 0RF Hold Instructions: Resume on 02/23/25. Hold until you see your PCP. Rx Instructions: must administer with a meal/food lisinopril 20 mg tablet 20 mg PO QDAY Qty: 30 0RF Hold Instructions: Resume on 02/23/25. Hold until you see your PCP. lisinopril-hydrochlorothiazide [Zestoretic] 20-25 mg tablet 2 tab PO QDAY Hold Instructions: Resume on 02/23/25. Hold until you see your PCP. Discontinued Jardiance 10 mg tablet 10 mg PO QAM Qty: 30 0RF Referrals: Wayne Bishop FNP [Primary Care Provider] - Ruben Archer MD [Physician] - Patient/Caregiver Discharge Instructions Other Discharge Activity Instructions:: Follow up with primary doctor and with bracelet and brooch maker Dr. Archer within 1-2 weeks. Echo to be done outpatient with Dr. Archer. Hold all blood pressure medications due to your low blood pressure. They are to be resumed after being seen by your bracelet and brooch maker. Continue aspirin 81 mg and atovastatin 40 mg daily. Return to ED if symptoms worsen. Education Materials: Orthostatic Hypotension Print Language: Macedonian Stand Alone Forms: Nicky Award Info., Patient Portal Info Letter Discharge Order Discharge Orders: Discharge (Routine); Ordered 02/05/25 Ordered By: Briseyda Schulz Quality Discharge Quality Measures VTE prophylaxis
[2025-02-05 16:00] VITALS: BP 119/91; PULSE 101; PULSE 86; RESP 18; TEMP 36.1; O2SAT 97
== END 2025-02-05 16:45 | disposition home or self-care (01) | DRG 190 ==
LOC: SERX 14:53 → SERHOLD 15:24 → S2NX 19:49
PROVIDERS: Internal Medicine; Admitting Provider Student in an Organized Health Care Education/Training Program; Emergency Provider Emergency Medicine; PCP Nurse Practitioner; Visit Provider Student in an Organized Health Care Education/Training Program
DX: I21.4 Non-ST elevation (NSTEMI) myocardial infarction (principal); I10 Essential (primary) hypertension; I95.1 Orthostatic hypotension; F12.90 Cannabis use, unspecified, uncomplicated; E11.9 Type 2 diabetes mellitus without complications; E78.5 Hyperlipidemia, unspecified; F14.90 Cocaine use, unspecified, uncomplicated; Z86.73 Personal history of transient ischemic attack (TIA), and cerebral infarction without residual deficits; Z79.84 Long term (current) use of oral hypoglycemic drugs; Z90.49 Acquired absence of other specified parts of digestive tract
CPT/HCPCS: 36415; 71045; 80048; 80053; 80061; 80320; 81001; 83036; 83735; 83880; 84100; 84436; 84443; 84484; 85025; 85730; 93005; 99285; J1643; J1815; A9270; G0480

== ENCOUNTER 2025-02-20 14:45 | Emergency (ER) | payer MEDICAID, SELFPAY ==
[2025-02-20 14:47] VITALS: BMI 29.8
[2025-02-20 14:55] VITALS: BP 117/83; PULSE 117; RESP 18; TEMP 36.7; O2SAT 100
--- NOTE | 2025-02-20 14:56 | XR_ITS ---
Examination: PA lateral chest 2 views TECHNIQUE: Upright PA lateral chest 2 views Exam date and time: February 20, 2025 1621 hours Comparison February 03, 2025 INDICATIONS: Onset chest pain today. FINDINGS: Normal heart size Lungs are clear. The osseous structures are intact IMPRESSION: No active disease
--- NOTE | 2025-02-20 14:56 | XR_ITS ---
Examination: CT brain head without contrast. 2-D sagittal coronal reconstructions Date and time of exam:February 20, 2025 at 1532 hours INDICATIONS: Dizziness chest pain beginning 2 days ago CTDI: vol (mGy):51.2 DLP: (mGycm):1047 Technique: Multiple CT axial sections of the brain have been obtained, 5 mm slice thickness. Contrast has not been administered. 2-D sagittal, coronal reconstructions have been obtained Low dose protocols were performed. One or more of the following dose reduction techniques were used; automated exposure control, adjustment of the mA and/or KV according to patient size, use of iterative reconstruction technique. Findings: No significant ventricular enlargement. Small old infarct in the right thalamus Intra-axial or extra-axial hemorrhage density is not seen. No mass effect or midline shift Basal cisterns are not remarkable. Fourth ventricle is midline. Cranial vault intact. Impression: Negative for acute hemorrhage, mass effect or midline shift If symptoms persist, consider brain MRI follow-up
--- NOTE | 2025-02-20 14:56 | EKG_ITS ---
[facility] Test Date: 2025-02-20 Pat Name: СВЕТЛАНА ROBERTSON Department: Room: - Gender: Male Side Seam Machine Operator: : [id number] Requested By: Quirino Mendez (SEVEN) Order Number: [id number] Reading MD: Quirino Mendez (EXTRUSION PROCESS OPERATOR) Measurements Intervals Butler Rate: 108 P: 68 GA: 163 QRS: -12 QRSD: 117 T: 39 QT: 342 QTc: 459 Interpretive Statements SINUS TACHYCARDIA INDETERMINATE AXIS Compared to ECG 01/19/2024 03:00:44 Indeterminate axis now present Atrial abnormality no longer present Left-axis deviation no longer present Incomplete right bundle-branch block no longer present /store/S0/[id number]/ecg/[id number].pdf
--- NOTE | 2025-02-20 14:57 | PD.EDRME ---
Rapid Medical Screening Exam RME Arrival date/time: 02/20/25 14:45 59-year-old male with history of hypertension, diabetes, TIA presents to the emergency department today for complaints of tachycardia, dizziness Chief Complaint: Chest Pain Time Seen by Provider: 02/20/25 14:54 Vital signs: Vital Signs Temperature 98.1 F 02/20/25 14:55 Pulse Rate 117 H 02/20/25 14:55 Respiratory Rate 18 02/20/25 14:55 Blood Pressure 117/83 02/20/25 14:55 Pulse Oximetry (%) 100 02/20/25 14:55 Oxygen Delivery Method Room Air 02/20/25 14:55
[2025-02-20 15:35] LABS: Collection Type, Urine Clean Catch; RBC,Urine 0 /hpf (0-3)
[2025-02-20 15:51] LABS: Bilirubin,Urine Negative (Negative); Blood,Urine Negative (Negative); Clarity,Urine Clear (Clear/Hazy); Color,Urine Lt-Yellow (Lt Yel-Yel); Glucose, Urine 3+ (Negative); Ketones,Urine Negative (Negative); Leukocyte Esterase,Urine Negative (Negative); Nitrite,Urine Negative (Negative); PH,Urine 5.5 (5.0-7.0); Protein,Urine Negative (Neg - Trace); Specific Gravity,Urine 1.021 (1.001-1.035); Squamous Epithelial Cell,Urine < 1 /hpf (0-5); Urobilinogen,Urine Negative mg/dL (0.0-1.0); WBC,Urine < 1 /hpf (0-5)
[2025-02-20 16:00] LABS: Amphetamine/Methamp Scrn,U Positive (Negative); Barbiturate Screen,Urine Negative (Negative); Benzodiazepines Screen,Urine Negative (Negative); Benzoylecgonine Screen, Ur Negative (Negative); Fentanyl Screen,Urine Negative (Negative); Opiate Screen,Urine Negative (Negative); THC Screen,Urine Negative (Negative)
[2025-02-20 16:05] LABS: Basophils # (Auto) 0.1 Thou/mm3 (0.0-0.2); Basophils % (Auto) 1 % (0-2.5); Eosinophils # (Auto) 0.1 Thou/mm3 (0.0-0.5); Eosinophils % (Auto) 1 % (0-10); Hematocrit 43.5 % (41.0-53.0); Hemoglobin 14.7 g/dL (13.5-16.0); Immature Granulocytes % (Auto) 0 % (0-0); Immature Granulocytes Auto 0.04 Thou/mm3 (0.00-0.00); Lymphocytes # (Auto) 1.5 Thou/mm3 (1.0-4.8); Lymphocytes % (Auto) 15 % (10-50); Mean Corpuscular HGB Conc 33.8 g/dl (31.0-37.0); Mean Corpuscular Hemoglobin 27.2 pg (25.0-35.0); Mean Corpuscular Volume 81 fL (80-100); Monocytes # (Auto) 0.6 Thou/mm3 (0.0-0.8); Monocytes % (Auto) 6 % (0-12); Neutrophils # (Auto) 7.4 Thou/mm3 (1.8-7.7); Neutrophils % (Auto) 77 % (37-80); Nucleated Red Blood Cell % 0 /100 WBC (0); Platelet Count 269 Thou/mm3 (140-440); RDW Standard Deviation 40.1 fL (35.1-43.9); White Blood Count 9.6 Thou/mm3 (3.8-10.6)
[2025-02-20 16:13] LABS: B-Type Natriuretic Peptide 33 pg/mL (0-100)
[2025-02-20 16:27] LABS: Alanine Aminotransferase 19 U/L (10-49); Albumin, Serum 4.4 gm/dL (3.5-5.0); Albumin/Globulin Ratio 1.5 (1.2-2.2); Alkaline Phosphatase 79 U/L (46-116); Anion Gap 7 (7-16); Aspartate Amino Transferase 14 U/L (0-34); BUN/Creatinine Ratio 12 Ratio (12-20); Bilirubin,Total 0.6 mg/dL (0.3-1.2); Blood Urea Nitrogen 22 mg/dL (9-23); Calcium 9.6 mg/dL (8.3-10.6); Calcium (Corrected) 9.6 mg/dL (8.5-10.1); Chloride 99 mMol/L (98-107); Creatinine (Component) 1.8 mg/dL (0.6-1.3); Estimated Creatinine Clearance 45.5 mL/min (>60); Glucose 279 mg/dL (74-106); Magnesium 1.8 mg/dL (1.6-2.6); Osmolality,Calculated 281 (275-295); Potassium 3.9 mMol/L (3.4-5.1); Sodium 134 mMol/L (136-145); Total Protein 7.4 gm/dL (5.7-8.2); eGFR 43 See Note
[2025-02-20 16:38] LABS: Partial Thromboplastin Time 25.8 Seconds (22.0-36.0); Prothrombin Time 10.8 Seconds (9.0-12.2)
[2025-02-20 17:19] LABS: Troponin I 0.344 ng/mL (0.0-0.045)
[2025-02-20 17:42] VITALS: BP 122/87; PULSE 97; RESP 16; TEMP 37; O2SAT 99
--- NOTE | 2025-02-20 17:50 | EDNOTE_ITS ---
<Statement entered by Ayde Anand MD - 02/26/25 02:09> As co-signing physician, I was present and available for consult prn. I concur with the plan and care as documented by the midlevel provider. ED General RME/HPI General Chief complaint: Chest Pain Stated complaint: SENT BY PCP R/O [place] Time Seen by Provider: 02/20/25 14:54 Arrival date/time: 02/20/25 14:45 CC: Chest pain HPI ongoing intermittent since discharged here in mid January for same complaint. Patient admits to using methamphetamines every day. He admits to using this morning. The patient currently is chest pain-free denies any nausea or vomiting. Is aware that he has strain on his kidneys, RME / HPI RME / HPI narrative: 02/20/25 14:45 59-year-old male with history of hypertension, diabetes, TIA presents to the emergency department today for complaints of tachycardia, dizziness Related Data Home Medications ?Medication ?Instructions ?Recorded ?Confirmed linagliptin 5 mg tablet (Tradjenta) 5 mg PO QDAY 02/0402/04/25 lisinopril 20 2 tab PO QDAY 02/04/2502/04 mg-hydrochlorothiazide 25 mg tablet (Zestoretic) Held on 02/05/25. Instructions: Resume on 02/23/25. Hold until you see your PCP. metformin 500 mg tablet,extended 500 mg PO QDAY 02/04/25 release 24 hr tamsulosin 0.4 mg capsule 0.4 mg PO QDAY 02/04/2501/24 Previous Rx's ?Medication ?Instructions ?Recorded amlodipine 10 mg tablet 10 mg PO QDAY #30 tabs 08/10 Held on 02/05/25. Instructions: Resume on 02/23/25. Hold until you see your PCP. atorvastatin 80 mg tablet 80 mg PO QPM #30 tabs carvedilol 6.25 mg tablet 6.25 mg PO BID #60 tabs 07/26 04/13 Held on 02/05/25. Instructions: Resume on 02/23/25. Hold until you see your PCP. lisinopril 20 mg tablet 20 mg PO QDAY #30 tabs 08/10 Held on 02/05/25. Instructions: Resume on 02/23/25. Hold until you see your PCP. aspirin 81 mg capsule 81 mg PO QDAY #30 caps 02/05 atorvastatin 20 mg tablet 40 mg (2 x 20 mg) PO HS 30 d ays 02/05/25 #30 tabs Allergies Allergy/AdvReac Type Severity Reaction Status Date / Time No Known Allergies Allergy Unverified 02/20/25 14:47 Review of Systems Review of Systems Narrative Review of Systems: GEN: No fever, no chills, no weight loss EYES: No discharge, no visual changes, no pain HEENT: No ear pain, no congestion, no sore throat PULM: No shortness of breath, no cough, no congestion CV: + chest pain, no dyspnea on exertion, no palpitations GI: No nausea, no vomiting, no diarrhea, no pain, no constipation : No frequency, no urgency, no dysuria MUSC/SKEL: No joint pain, no back pain SKIN: No rash PSYCH: No hallucinations, no depression HEME/LYMPH: No easy bleeding or bruising tendencies NEURO: No weakness, no headache Past Medical History Past Medical History NEUROLOGIC: Positive Neurological Disorders, Cerebrovascular Accident, Transient Ischemic Attacks (TIA) and Meningitis CARDIAC: Positive Hypercholesterolemia and Hypertension; Negative Cardiac Disorders or Congestive Heart Failure RESPIRATORY: Negative Chronic Obstructive Pulmonary Disease (COPD), Asthma or Pneumonia GASTROINTESTINAL: Negative Gastrointestinal Disorders GENITOURINARY: Positive Renal Disease; Negative Genitourinary Disorders ENDOCRINE: Positive Diabetes Mellitus Type 2; Negative Diabetes Mellitus Type 1 HEMATOLOGIC: Negative Blood Disorders or Sickle Cell Disease Surgical History SURGICAL: Positive Tonsillectomy Social History SMOKING STATUS: Never smoker SUBSTANCE USE: marijuana and crack/cocaine ED Exam Narrative Physical exam: [General: Not in any acute distress Head normocephalic HEENT: Within acceptable limits Neck is supple nontender Chest equal chest rise nontender to palpation Respiratory: Clear to auscultation no wheezes crackles or rubs CV: Rate rhythm is regular, tachycardic, no murmurs rubs or clicks Abdomen is soft nontender no masses positive bowel sounds all 4 quadrants Back: No CVA tenderness no spinous process tenderness from cervical spine thoracic and lumbar spine Skin: Intact no petechiae rash induration ulceration or crepitus Extremities: Moving all extremity against resistance cap refill less than 2 seconds neurosensory intact Neuro: Awake alert oriented x3 Glascow coma 15 no focal deficits] Course Course Course Narrative: Abnormal labs look typical for what has been happening in the last month,patients case discussed with Dr Anand, who agrees with the disposition Quality Measures none Orders Category Date Time Status EKG (ED ONLY) *Do not use* NOW Care 02/20/25 14:[address] head/brain wo con Stat Exams 02/20/25 14:56 Completed EKG (ED Only) Stat Exams 02/20/25 14:56 Draft XR chest 2V Stat Exams 02/20/25 14:56 Completed B-Type Natriuretic Peptide Stat Lab 02/20/25 15:44 Completed CBC Stat Lab 02/20/25 15:44 Completed Comprehensive Metabolic Panel Stat Lab 02/20/25 15:44 Completed Drug Screen,Urine Stat Lab 02/20/25 15:20 Completed Magnesium Stat Lab 02/20/25 15:44 Completed Partial Thromboplastin Time Stat Lab 02/20/25 15:44 Completed Prothrombin Time with INR Stat Lab 02/20/25 15:44 Completed Troponin I Stat Lab 02/20/25 15:44 Completed Urinalysis Stat Lab 02/20/25 15:20 Completed Vital Signs Vital signs: Vital Signs Temperature 98.1 F 02/20/25 14:55 Pulse Rate 117 H 02/20/25 14:55 Respiratory Rate 18 02/20/25 14:55 Blood Pressure 117/83 02/20/25 14:55 Pulse Oximetry (%) 100 02/20/25 14:55 Oxygen Delivery Method Room Air 02/20/25 14:55 Discharge Plan Plan Patient Disposition: HOME (Self Care) Patient condition on transfer: Stable Prescriptions/Referrals Prescriptions/Med Rec: No Action amlodipine 10 mg tablet 10 mg PO QDAY Qty: 30 0RF carvedilol 6.25 mg tablet 6.25 mg PO BID Qty: 60 0RF Rx Instructions: must administer with a meal/food lisinopril 20 mg tablet 20 mg PO QDAY Qty: 30 0RF atorvastatin 80 mg tablet 80 mg PO QPM Qty: 30 0RF metformin 500 mg tablet extended release 24 hr 500 mg PO QDAY Tradjenta 5 mg tablet 5 mg PO QDAY tamsulosin 0.4 mg capsule 0.4 mg PO QDAY Rx Instructions: Take 1 capsule by mouth once daily for 30 days lisinopril-hydrochlorothiazide [Zestoretic] 20-25 mg tablet 2 tab PO QDAY aspirin 81 mg capsule 81 mg PO QDAY Qty: 30 0RF atorvastatin 20 mg Tablet 40 mg PO HS 30 Days Qty: 30 0RF Referrals: Clay Villagomez MD [Physician] - In 1 week No Primary/Family,Physician [Primary Care Provider] - In 1 week Problem List Clinical Impression: Chest pain, Elevated troponin, CKD (chronic kidney disease) Patient/Caregiver Discharge Instructions Education Materials: Kidney Disease Protein, Understanding Methamphetamine ..., ED Chest Pain, Uncertain Cause Print Language: Belgian Stand Alone Forms: [employer] Award Info., Work/School Release, Patient Portal Info Letter PA/WALT Supervising Physician PA/WALT Supervising Physician: Phillip Martinez ENP MDM Patient Acuity High Acuity (complete MDM) Narrative: Patient was discharged from here on 413 for elevated troponin patient has had a CVA he has history of hypertension diabetes and hyperlipidemia. At that time patient's troponin peaked to 1.68 cardiology was consulted. Currently the troponin is 0.344. Patient has no chest pain is positive for methamphetamines. Clinical Information Provided by: none and patient Medical Records reviewed [facility] Meds/Rx considered, not ordered None Labs/Rad/Tests considered, not ordered None Chronic Illness/Social Conditions Explain: Methamphetamine abuse EKG EKG not done EKG Interpretation(s): EKG performed at 1500 shows a ventricular rate of 108 MA interval 163 QRS of 117 QTc of 405 this sinus tachycardia. Labs Labs: Interpreted by me Lab(s) Interpretation(s): CBC shows no acute leukocytosis anemia thrombocytopenia CMP shows sodium 134 creatinine of 1.8 of note this is unchanged from previous visits. Glucose of 279 no other significant electrolyte imbalances T. bili at 0.6 no transaminitis. Troponin at 0.344 please note in the past week that it is as high as 1.8. Urine is 3+ positive for glucose leukocyte esterase negative but methamphetamine positive on UDS. Imaging Imaging Interpretation(s): Head CT is negative for any acute findings as interpreted by me read by radiology. Chest x-ray is unremarkable. Medication Administration(s) none Diagnosis Differential Diagnosis ED Complaint MDM: ACS [place] pneumonia
[2025-02-20 18:04] VITALS: BP 118/89; PULSE 105; RESP 19; TEMP 36.9; O2SAT 95
== END 2025-02-20 18:08 | disposition home or self-care (01) ==
PROVIDERS: Nurse Practitioner Primary Care; Emergency Provider Emergency Medicine
DX: I12.9 Hypertensive chronic kidney disease with stage 1 through stage 4 chronic kidney disease, or unspecified chronic kidney disease (principal); N18.9 Chronic kidney disease, unspecified; E11.22 Type 2 diabetes mellitus with diabetic chronic kidney disease; R07.9 Chest pain, unspecified; R79.89 Other specified abnormal findings of blood chemistry; R00.0 Tachycardia, unspecified; R42 Dizziness and giddiness; E78.00 Pure hypercholesterolemia, unspecified; Z79.84 Long term (current) use of oral hypoglycemic drugs
CPT/HCPCS: 36415; 70450; 71046; 80053; 80307; 81001; 83735; 83880; 84484; 85025; 85610; 85730; 93005; 99284